=== PATIENT | female | born 1950 | race Caucasian/White ===

== ENCOUNTER 2019-10-23 05:05 | Day surgery (SDC) | payer MEDICARE, OTHER ==
[~2019-10-23] VITALS: Ht 167.6 cm; Wt 70.3 kg
[~2019-10-23 05:05] MED LIST: BYDUREON P2 MG/0.65 SC; CRESTOR20 MG PO; FERROUS SULFAT325 MG PO; JANUVIA100 MG PO; LEVEMIR FL100 UNIT/1 SC; LISINOPRIL10 MG PO; VITD2 PO
[2019-10-23 05:34] LABS: MCH 30.2 pg (26.0-34.0); MCHC 32.5 g/dL (31.0-37.0); MCV 92.8 fL (80.0-100.0); MEAN PLATELET VOLUME 9.1 fL (7.4-10.4); RBC 4.31 10x6/uL (4.00-5.40); RDW 12.3 % (11.5-14.5); WBC 5.9 10x3/uL (4.8-10.8)
[2019-10-23 06:20] VITALS: Ht 167.6 cm; Wt 70.3 kg
[2019-10-23 07:22] LABS: CALC OSMOLALITY 282 mosm/kg (275-300); CALCIUM 8.4 mg/dL (8.5-10.1); CARBON DIOXIDE 26.9 mmol/L (21.0-32.0); CHLORIDE - SERUM 104 mmol/L (98-107); CREATININE - SERUM 0.8 mg/dL (0.6-1.3); GLUCOSE 108 mg/dL (74-106); POTASSIUM - SERUM 4.1 mmol/L (3.5-5.1); SODIUM 141 mmol/L (136-145); UREA NITROGEN 14 mg/dL (7-18); eGFR NON AFRICAN AMERICAN 75 mL/min (90-120)
--- NOTE | 2019-10-23 11:27 | NUR ---
UPON ARRIVAL PTS PAIN 9/10 AFTE R BLOCK AND DILAUDID. ANESTH RE-BLOCKED AT 1015. UPON DISCHARGE PT REPORTS PAIN 3/10. IV D/C'D WITH CANNULA INTACT, PRESSURE HELD, AND DRSG PLACED. DISCHARGE INSTRUCTIONS GIVEN. PT AND VERBALIZED AN UNSERSTANDING. DISCHARGED HOME IN STABLE CONDITION AND WITHOUT C/O
--- NOTE | 2019-10-25 14:45 | OP ---
PATIENT NAME: NIC GO MEDICAL RECORD: [id number] :48 LOCATION:[facility] ADMISSION DATE: SURGEON: ANALIA VEGA MD DATE OF OPERATION: 10/23/2019 PREOPERATIVE DIAGNOSIS: Left distal radius fracture. POSTOPERATIVE DIAGNOSIS: Left distal radius fracture. PROCEDURE PERFORMED: ORIF, left distal radius (extraarticular). INDICATIONS FOR THE PROCEDURE: Ms. Go is a 69-year-old female who fell this past weekend and injured her left wrist. She sustained a fracture of the distal radius, has evidence of moderate displacement. I talked to her about options for conservative versus surgical management. She has elected to proceed with the surgery for ORIF of the distal radius. Risks, benefits, alternatives of surgery were discussed with the patient and consent was obtained. DESCRIPTION OF THE PROCEDURE: The patient was met in the holding area where her identity and confirmation of procedure was performed. The left upper extremity was marked. She was taken to the operating room where she was placed supine on the operating table and anesthesia was administered. Tourniquet was applied to left arm and the left arm was prepped and draped in a sterile fashion. The patient received preoperative antibiotics and timeout was performed for initiating the case. On initiation of the case, the arm was exsanguinated and the tourniquet was raised. Total tourniquet time was approximately 40 minutes. A volar Enrique approach was utilized for exposure. We incised through the skin and subcutaneous tissues, dissecting down to the FCR tendon. Tendon sheath was then excised. We continued our dissection posterior through the tendon sheath into the deep compartment at the wrist. We dissected down to the pronator quadratus and this was released along its radial insertion. The distal radius fracture was then easily identified. With some manipulation, we were able to obtain our reduction. A [employer] narrow plate was then positioned along the distal radius. Once we were pleased with its positioning, a screw was placed in the oblong hole. We then began placing locking screws distally. We were pleased with the trajectory and 4 locking screws were placed through the proximal row of the plate. A partially threaded locking screw was placed into the radial styloid and the rest were smooth pegs. Drill guides were removed distally. Two more cortical screws were placed in the shaft and this completed our procedure. Imaging was used throughout this process and final images were obtained that showed good alignment and positioning of the distal radius. The pronator was then reapproximated with Vicryl suture. Wound was irrigated thoroughly with saline. The tourniquet was let down and hemostasis was obtained. The subcutaneous tissue was then closed with Vicryl and the skin was closed with Prolene. Sterile dressing was placed. The patient was turned back over to anesthesia where she was awakened, extubated, and taken to recovery room in stable condition. POSTOPERATIVE PLAN: The patient is going to return home with her family today. She may move her fingers and elbow, but needs to leave the splint in place until followup. We will see her back in 2 weeks. ANESTHESIA: General. COMPLICATIONS: None. OPERATIVE REPORT [id number] NIC GO ESTIMATED BLOOD LOSS: 10 mL. TRANSINT:[id number] Voice Confirmation ID: [id number] DOCUMENT ID: [id number] ANALIA VEGA MD at 1445 CC: [id number] DICTATION DATE: 10/23/19926 MARINE WELDER: 10/23/19 1827 [facility] 10/23/19 [facility] [address] [place] [address]
== END 2019-10-23 10:55 | disposition home or self-care (01) ==
LOC: D.OPS 05:05
PROVIDERS: Anesthesiology; ATTEND Orthopaedic Surgery
DX: S52.502A Unspecified fracture of the lower end of left radius, initial encounter for closed fracture (principal); X58.XXXA Exposure to other specified factors, initial encounter; M25.532 Pain in left wrist